=== PATIENT | male | born 1985 | race Asian ===

== ENCOUNTER 2025-01-30 16:49 | Emergency (ER) | payer BC ==
[~2025-01-30] VITALS: Ht 175.3 cm; Wt 117.9 kg
[2025-01-30] MEDS ORDERED: IBUP-1490 PO (20:08)
[2025-01-30 20:15] VITALS: BP 124/77; TEMP 98.6; O2SAT 99
== END 2025-01-30 20:16 | disposition home or self-care (01) ==
LOC: ER 16:59
DX: M79.89 Other specified soft tissue disorders (principal); Z60.2 Problems related to living alone
CPT/HCPCS: 93971-TC